=== PATIENT | female | born 1965 | race American Indian/Alaskan Native ===

== ENCOUNTER 2016-11-13 15:27 | Outpatient (CLI) | payer BC ==
--- NOTE | 2016-11-13 16:43 | Mammography Report ---
BILATERAL MAMMOGRAM with CAD: HISTORY:Cancer screening. Comparison study is dated November 10, 2015. FINDINGS: The breasts are almost entirely fat (<25% glandular). No mass, distortion, suspicious calcification, or skin change is seen. IMPRESSION: Negative mammogram. There is no mammographic evidence of malignancy. RECOMMENDATION: Follow-up per ACS guidelines. BI-RADS CATEGORY: 1 = Negative ACR BI-RADS MAMMOGRAPHIC CODES: 0 = Needs additional imaging evaluation; 1 = Negative; 2 = Benign; 3 = Probably benign; 4 = Suspicious; 5 = Malignant; 6 = Known biopsy-proven malignancy COMMENT: 1. Dense breast tissue, i.e., adenosis, fibrocystic changes, etc., may obscure an underlying neoplasm. 2. Approximately 10% of cancers are not detected with mammography. 3. A negative mammography report should not delay biopsy if a clinically suspicious mass is present. COMMENT: Patient follow-up letters are generated in [employer].
--- NOTE | 2016-11-14 13:32 | Ultrasound Report ---
TRANSABDOMINAL AND TRANSVAGINAL PELVIC ULTRASOUND: 11/13/16 15:27:00 CLINICAL: Left pelvic pain. FINDINGS: Transabdominal and transvaginal pelvic ultrasound demonstrated a fibroid uterus measuring 10.8 x 5.8 x 6.5 cm. The largest fibroid is located intramural in the anterior fundus and measures 3.2 x 3.0 x 3.1 cm. An anterior lower uterine segment intramural fibroid measures 1.4 x 1.3 x 1.3 cm. A posterior submucosal fibroid in the uterine body measures 2.0 x 1.4 x 1.3 cm.The endometrium is normal and measures 5.0 mm AP thickness. Normal right ovary. The right ovary measures 1.9 x 1.6 x 2.9cm. A left ovary was not confidently identified. However, the technologist described a left adnexal mass measuring 3.4 x 2.8 x 3.4 cm. This may be the left ovary or a submucosal or pedunculated left uterine fibroid. No free fluid. Normal urinary bladder. IMPRESSION: 1. Uterine leiomyomata with mild uterine enlargement. 2. Possible left adnexal mass. Consider MRI or CT for further evaluation.
== END 2016-11-13 15:28 | disposition home or self-care (01) ==
LOC: SPVWC 15:27
DX: Z12.31 Encounter for screening mammogram for malignant neoplasm of breast (principal); D25.9 Leiomyoma of uterus, unspecified; N85.2 Hypertrophy of uterus; R10.2 Pelvic and perineal pain
CPT/HCPCS: 76830; 76856; G0202; 77067

== ENCOUNTER 2018-01-23 12:58 | Outpatient (CLI) | payer BC ==
--- NOTE | 2018-01-23 15:05 | Mammography Report ---
BILATERAL DIGITAL SCREENING MAMMOGRAM with CAD: 01/23/18 12:58:00 CLINICAL: Routine screening. COMPARISON:11/13/16 FINDINGS: The breasts are almost entirely fatty. No mass, architectural distortion or suspicious calcifications. IMPRESSION: No mammographic evidence of malignancy. BI-RADS CATEGORY: 1 - - Negative RECOMMENDATION: Routine mammographic screening in one year. COMMENT: Patient follow-up letters are generated by our [employer] application.
== END 2018-01-23 12:59 | disposition home or self-care (01) ==
LOC: SPVWC 12:58
DX: Z12.31 Encounter for screening mammogram for malignant neoplasm of breast (principal)
CPT/HCPCS: 77067

== ENCOUNTER 2019-01-29 15:11 | Outpatient (CLI) | payer BC ==
--- NOTE | 2019-01-30 09:01 | Mammography Report ---
BILATERAL DIGITAL SCREENING MAMMOGRAM : 01/29/19 15:11:00 CLINICAL: Routine screening. COMPARISON:01/23/18 FINDINGS: The breasts are almost entirely fatty. No mass, architectural distortion or suspicious calcifications. IMPRESSION: No mammographic evidence of malignancy. BI-RADS CATEGORY: 1 - - Negative RECOMMENDATION: Routine mammographic screening in one year. COMMENT: Patient follow-up letters are generated by our [employer] application.
== END 2019-01-29 15:12 | disposition home or self-care (01) ==
LOC: SPVWC 15:11
DX: Z12.31 Encounter for screening mammogram for malignant neoplasm of breast (principal)
CPT/HCPCS: 77067